=== PATIENT | male | born 1980 | race African-American/Black ===

== ENCOUNTER 2018-02-09 02:09 | Emergency (ER) | payer MEDICARE, SELFPAY ==
[2018-02-09 02:10] VITALS: BP 147/80; PULSE 91; RESP 18; TEMP 36.6; O2SAT 96; BMI 37.1
--- NOTE | 2018-02-09 02:33 | ED.DCSUM_ITS ---
- ER Visit Summary Date of Service: 02/09/18 Chief Complaint: Right foot pain History of Present Illness: The patient is a 37 M who presents with right foot pain of about 2 weeks. He states his pain was worse tonight which prompted him to be evaluated. His pain is just on the bottom of the right foot. He does not recall any injury. No fall. No paresthesias numbness tingling weakness. No fevers chills. He is not diabetic. He denies any medical history. Physical Examination: Afebrile vitals unremarkable Patient has tenderness along the plantar fascia of the right foot he has no focal bony tenderness he has an easily palpable pulse brisk capillary refill normal sensation and active full range of motion Test Results: Not indicated Emergency Department Course and Treatment: History and examination are consi stent with plantar fasciitis. He was given naproxen here. He was given a prescription for the same. He was instructed on supportive care. He was discharged. Treatment Plan: [] Disposition: Discharge Impression: Plantar fasciitis This note was generated with [employer] dictation software. It may contain incorrect words, spelling, and punctuation that were not noted in review of the chart prior to signing ED Disposition - Plan for ED Patient: Chief Complaint: Lower Extremity Injury Referrals: NOT,DEFINED [Primary Care Provider] -
--- NOTE | 2018-02-09 02:33 | ED.DEP ---
ED Disposition - Plan for ED Patient: Chief Complaint: Lower Extremity Injury Instructions: ED Plantar Fasciitis Prescriptions: Naproxen [Naprosyn] 500 mg PO BID #20 tab Referrals: NOT,DEFINED [Primary Care Provider] -
== END 2018-02-09 02:51 | disposition home or self-care (01) ==
PROVIDERS: Emergency Provider Emergency Medicine
DX: M72.2 Plantar fascial fibromatosis (principal); Z72.0 Tobacco use
CPT/HCPCS: 99282

== ENCOUNTER 2018-04-08 21:35 | Emergency (ER) | payer MEDICARE, SELFPAY ==
[2018-04-08 21:35] VITALS: BP 127/66; PULSE 108; RESP 15; TEMP 36.6; BMI 33.3
--- NOTE | 2018-04-08 22:05 | RAD_ITS ---
STUDY: X-RAY - RIGHT KNEE REASON FOR EXAM: Male, 37 years old. Trauma TECHNIQUE: 3 view(s) of the knee. COMPARISON: None. FINDINGS: Normal visualized distal femur. Normal visualized proximal tibia and fibula. Normal proximal tibiofibular articulation. Mildly narrowed medial femorotibial compartment. Normal lateral femorotibial compartment. Normal patellofemoral articulation. The soft tissue structures are unremarkable. RAD/Knee 3 Views IMPRESSION: Mild degenerative changes. No evidence for acute fracture Electronically Signed: Shamir Baugh MD at 23:00 EST , Service support ,
--- NOTE | 2018-04-08 23:06 | ED.VISSUMM ---
- ER Visit Summary Date of Service: 04/08/18 Chief Complaint: [Injury right knee History of Present Illness: The patient is a 37 M [presents the emergency department complaint of injury to his right knee that occurred yesterday. Patient states he was helping a friend move a washer when he slipped and fell in the snow. Patient did not think much of the injury initially but now having a hard time bearing weight. Patient denies any other injuries.] Physical Examination: [HEENT-PERRLA, EOMI. Cranial nerves II through XII grossly intact. TMs clear. Mucous membranes moist. No adenopathy. Cardiovascular-regular rate and rhythm without murmur or ectopy Lungs-clear to auscultation, chest wall stable without crepitus or subcu emphysema Abdomen-normoactive bowel sounds, soft, nontender, no rebound or rigidity, no peritoneal signs. Extremities-intact ?4, normal range of motion, normal pulses, atraumatic. Right knee-no effusion noted. No ecchymosis or bruising noted. Patient has mild diffuse tenderness to palpation. Patient has pain with flexion extension of the knee and ligamentous exam is limited due to the amount of patient pain. Neurovascular intact distally.] Test Results: [X-rays of the right knee obtained showed no fractures only mild degenerative arthrosis] Emergency Department Course and Treatment: [Patient was given a knee immobilizer and crutches.] Treatment Plan: [Patient will be given a prescription for Naprosyn and [place] for severe pain.] Disposition: [Discharged home in stable condition. Patient will be given referral to orthopedics for follow-up] Impression: [Right knee sprain possible internal derangement] This note was generated with [employer] dictation software. It may contain incorrect words, spelling, and punctuation that were not noted in review of the chart prior to signing ED Disposition - Plan for ED Patient: Chief Complaint: Lower Extremity Injury Referrals: Care Physician,No Primary [Primary Care Provider] -
--- NOTE | 2018-04-08 23:08 | ED.DEP ---
ED Disposition - Plan for ED Patient: Chief Complaint: Lower Extremity Injury Instructions: ED Meniscal Injury Knee Poss Prescriptions: Hydrocodone Bitart/Apap 5-325 [[place] 5MG-325MG] 1 tab PO Q4H PRN PRN 2 Days #10 tab PRN Reason: Pain Naproxen [Naprosyn] 500 mg PO BID PRN #20 tab Referrals: Care Physician,No Primary [Primary Care Provider] - Josue Rivas DO [STAFF PHYSICIAN] - 3-5 Days
[2018-04-08 23:28] VITALS: PULSE 110; RESP 18; O2SAT 99
== END 2018-04-08 23:29 | disposition home or self-care (01) ==
LOC: ED 22:05
PROVIDERS: Emergency Provider Emergency Medicine
DX: S83.91XA Sprain of unspecified site of right knee, initial encounter (principal); W00.0XXA Fall on same level due to ice and snow, initial encounter; Y93.9 Activity, unspecified; Y92.9 Unspecified place or not applicable; Y99.9 Unspecified external cause status; Z72.0 Tobacco use
CPT/HCPCS: 73562; 99283

== ENCOUNTER 2024-01-04 20:38 | Emergency (ER) | payer MEDICARE, SELFPAY ==
[2024-01-04 20:38] VITALS: BP 158/99; PULSE 93; RESP 16; TEMP 35.8; O2SAT 100; BMI 39.6
--- NOTE | 2024-01-04 21:25 | RAD_ITS ---
STUDY: X-RAY - RIGHT WRIST REASON FOR EXAM: Male, 43 years old. Trauma, pain TECHNIQUE: 3 view(s) of the wrist were obtained. COMPARISON: None. FINDINGS: Normal visualized distal radius and ulna. Normal radiocarpal articulation. Normal distal radioulnar articulation. Normal carpal bones. Normal carpal articulations. Normal carpometacarpal articulation of the thumb. Normal second through fifth carpometacarpal articulations. Normal visualized metacarpal bones. The soft tissue structures are unremarkable. There is no demonstrated acute fracture. RAD/Wrist min 3 Views IMPRESSION: Normal x-ray examination of the wrist. Electronically Signed: Joseluis Watkins MD at 22:37 EDT ,
--- NOTE | 2024-01-04 21:25 | RAD_ITS ---
STUDY: X-RAY - RIGHT SHOULDER REASON FOR EXAM: Male, 43 years old. Pain, trauma TECHNIQUE: 4 view(s) of the shoulder. COMPARISON: None. FINDINGS: Normal glenohumeral articulation. Normal acromioclavicular joint. Normal acromion. Normal humeral head and visualized proximal humerus. The soft tissue structures are unremarkable. There is no demonstrated fracture. Normal visualized pulmonary apex. RAD/Shoulder min 2 Views IMPRESSION: Normal x-ray examination of the shoulder. Electronically Signed: Joseluis Watkins MD at 22:39 EDT ,
--- NOTE | 2024-01-04 21:39 | EDS_ITS ---
HPI History of Present Illness Chief Complaint: Upper Extremity Injury Narrative Narrative: Chief complaint and HPI: Right shoulder and wrist pain. 43-year-old male with no significant past medical history presents for evaluation of right shoulder and wrist pain. Patient states he fell a couple weeks ago onto his right shoulder and wrist and since then has continued to have pain. He has been taking Tylenol and Motrin as needed. Denies any numbness/tingling. Denies any weakness. Denies any injury elsewhere. Review of systems: See HPI Medications: As listed on the chart Allergies: As listed on the chart PFSH: Per chart Vital signs: As listed on the chart. Reviewed. Physical exam: Gen: A&O x3, NAD Head: Normocephalic, atraumatic Eyes: No sclera icterus, conjunctiva clear ENT: Moist mucous membranes Neck: Trachea midline, full range of motion CV: RRR, no murmurs Resp: Lungs CTA BL, no w/r/c Musc: Full ROM of the right upper extremity including the shoulder and wrist- endorses mild pain with wrist and shoulder movement-nontender to palpation, strength plus 5 out of 5, no deformity, no ecchymosis/swelling/erythema, good capillary refill, sensation intact, radial/ulnar pulses plus 2 out of 4 Neuro: Alert, oriented, grossly intact, sensation intact Psych: Cooperative, appropriate mood and affect [facility] Medical History (Updated 01/04/24 @ 22:[address] Rory Hunter, DO) Schizophrenia Home Medications ?Medication ?Instructions ?Recorded ?Last Taken ?Type NK 01/04/24 Unknown History Allergy/AdvReac Type Severity Reaction Status Date / Time No Known Allergies Allergy Verified 01/04/24 20:38 Surgical History (Updated 01/04/24 @ 20:44 by Zaina Altamirano) Hx of cholecystectomy Social History Smoking Status: Current every day smoker tobacco type: cigarettes EXAM Physical Exam Const Vital Signs: 01/04/24 20:38 Temperature 96.5 F L Temperature Source Temporal Pulse Rate 93 Respiratory Rate 16 Blood Pressure 158/99 H Blood Pressure Mean 118 Pulse Ox 100 Oxygen Delivery Method Room Air MDM MDM MDM Narrative Medical decision making narrative: 43-year-old male presents for evaluation of right shoulder and wrist pain after an injury several weeks ago. See physical exam findings. Differential diagnosis includes but is not limited to strain, contusion, fracture. Given that this was several weeks ago I suspect less likely fracture. X-ray of the shoulder and wrist ordered. Shoulder x-ray and wrist x-ray was interpreted by me, EM physician, no fracture or dislocation. Patient's pain is likely secondary to right shoulder strain and right wrist sprain. Continue Tylenol and Motrin as needed. Wear splint for comfort follow-up with PCP. He confirmed understand the plan. Impression: 1. Right shoulder strain 2. Right wrist 3. Mechanical fall Discharge Plan Triage Chief Complaint: Upper Extremity Injury ED Provider: Rory Hunter Dx/Rx/DC Orders Clinical Impression: Muscle strain of right shoulder, Right wrist sprain Prescriptions: No Action NK Primary Care Provider: Care Physician,No Primary Referrals: Rasheeda Duncan, [Med Staff - Counter Checker] - Care Physician,No Primary [Primary Care Provider] - Activity Restrictions/Additional Instructions: Follow-up with your primary care physician if you do not have 1 see the physician above. Tylenol and Motrin as needed for pain. Print Language: Macanese Disposition Disposition: Home, Self Care
[2024-01-04 22:49] VITALS: BP 137/101; PULSE 77; RESP 18; TEMP 36.7; O2SAT 100
== END 2024-01-04 22:53 | disposition home or self-care (01) ==
PROVIDERS: Emergency Provider Surgery; Visit Provider Surgery
DX: S46.911A Strain of unspecified muscle, fascia and tendon at shoulder and upper arm level, right arm, initial encounter (principal); S63.501A Unspecified sprain of right wrist, initial encounter; W18.30XA Fall on same level, unspecified, initial encounter; F17.210 Nicotine dependence, cigarettes, uncomplicated
CPT/HCPCS: 73030; 73110; 99282